=== PATIENT | male | born 1990 | race Two or more races ===

== ENCOUNTER 2020-03-18 00:40 | Emergency (ER) | payer SELFPAY ==
[~2020-03-18] VITALS: Ht 172.7 cm; Wt 83.0 kg
[2020-03-18 00:52] VITALS: BP 131/88
--- NOTE | 2020-03-18 02:10 | NUR ---
PT AWAKE AND ALERT,. AMBULATORY W. STEADY GAITS. REQUESTING TO LEAVE. MEDICALLY STABLE FOR D/C. Patient discharged to home in stable condition. Written and verbal after care instructions given. Patient verbalizes understanding of instruction however refused to sign the d/c paper.
== END 2020-03-18 02:14 | disposition home or self-care (01) ==
LOC: ER 00:47
DX: F19.10 Other psychoactive substance abuse, uncomplicated (principal)

== ENCOUNTER 2024-07-30 11:47 | Emergency (ER) | payer OTHER ==
[~2024-07-30] VITALS: Ht 177.8 cm; Wt 67.1 kg
[2024-07-30 11:52] VITALS: BP 168/124; TEMP 98.3; O2SAT 98
== END 2024-07-30 15:19 | disposition left against medical advice (07) ==
LOC: ER 11:58
DX: R53.1 Weakness (principal); Z53.21 Procedure and treatment not carried out due to patient leaving prior to being seen by health care provider